=== PATIENT | female | born 1950 | race Caucasian/White ===

== ENCOUNTER 2016-11-14 19:06 | Emergency (ER) | payer OTHER ==
--- NOTE | 2016-11-14 20:19 | ED CLINICAL REPORT ---
Clinical Report - Physicians/Mid Levels Located Within [facility] [address] [place] [address] 11/14/2016 19:07 Patient: YONATAN WRIGHT Time Seen: 19:56. Arrived- By private vehicle. Historian- patient. HISTORY OF PRESENT ILLNESS Chief Complaint: EARACHE. This started several days ago and is still present and now worse. It was gradual in onset and has been constant. Location- left ear. The pain is described as moderate. The patient has had moderate right ear pain. She has had mild left-sided ear drainage. No nasal discharge or congestion, sinus pressure, complaint of foreign body in the ear or ear trauma. No recent barotrauma or tinnitus. REVIEW OF SYSTEMS No chills, fever, sweats, calf pain or chest pain. No cough, difficulty breathing, pedal edema, palpitations or abdominal pain. No constipation, diarrhea, nausea, vomiting or urinary problems. All systems otherwise negative, except as recorded above. PAST HISTORY Problems: Ear Infection. Abscess. Irritable Bowel Syndrome. Gastroenteritis. Headache. Sprain. Aphthous Ulcer. [place] [facility]. UTI - Urinary Tract Infection. Hyperlipidemia. Cancer. Chronic Back Pain. DVT - Deep Venous Thrombosis. Diverticulitis. Dehydration. Diarrhea. Depression. Anxiety Reaction. Hypercholesterolemia. Breast Cancer. Additional Surgeries: Appendectomy. . Hysterectomy. Mastectomy. Oophorectomy. Reconstruction of left breast. Salpingectomy. Medications: Cyclobenzaprine HCl Oral. Amitriptyline HCl Oral 50mg, daily. Simvastatin Oral 80 mg, daily. Venlafaxine HCl ER Oral 150mg, daily. Allergies: Tape adhesive. SOCIAL HISTORY Never smoker. Occasional alcohol use. No drug use. FAMILY HISTORY No significant family medical history. ADDITIONAL NOTES The nursing notes have been reviewed. PHYSICAL EXAM Vital Signs: 11/14/2016 19:38 BP: 128/79. HR: 110. RR: 18. O2 saturation: 96%. Temp: 97.8 F. Have been reviewed. Heart rate: 94 regular per my evaluation. Appearance: Alert. No acute distress. Ear (left): There is erythema of the external canal, swelling of the external canal and erythema of the tympanic membrane. There is material in the external canal (white flocculent material). No fluid behind the tympanic membrane or bulging of the tympanic membrane. Throat: Pharynx normal. Ear (right): Right ear normal. Nose: Nose normal. Neck: Normal inspection. Neck supple. CVS: Normal heart rate and rhythm. Heart sounds normal. Respiratory: No respiratory distress. Breath sounds normal. Abdomen: Soft and nontender. Back: Normal inspection. Skin: Skin warm and dry. Normal skin color. Normal skin turgor. Extremities: Extremities exhibit normal ROM. No calf tenderness. No lower extremity edema. PROGRESS AND PROCEDURES Course of Care: Patient is stable. Patient/family counseled. Old medical records reviewed. Disposition: Discharged. Condition: stable. CLINICAL IMPRESSION Acute left otitis externa. INSTRUCTIONS Do not allow water in ear. Warnings: GENERAL WARNINGS: Return or contact your physician immediately if your condition worsens or changes unexpectedly, if not improving as expected, or if other problems arise. Your Current Medications: CONTINUE TAKING THE FOLLOWING MEDICATIONS: Amitriptyline HCl Oral : 50mg daily. Cyclobenzaprine HCl Oral. Simvastatin Oral : 80 mg daily. Venlafaxine HCl ER Oral : 150mg daily. Prescription Medications: Cortisporin otic suspension: Instill 4 drops into affected ear every 6 hours for 1 week. Dispense ten (10) mL. No refills. Substitution is permissible. Follow-up: Follow up with your doctor in two days if not better. Follow up with an ear, nose and throat physician (an clearing distribution clerk)- as recommended by your primary care physician. Understanding of the discharge instructions verbalized by patient. (Electronically signed by Brice Fong MD 11/16/2016 2:58)
--- NOTE | 2016-11-14 20:19 | ED CLINICAL REPORT ---
Clinical Report - Physicians/Mid Levels [facility] [address] [place] [address] 11/14/2016 19:07 Patient: YONATAN WRIGHT Time Seen: 19:56. Arrived- By private vehicle. Historian- patient. HISTORY OF PRESENT ILLNESS Chief Complaint: EARACHE. This started several days ago and is still present and now worse. It was gradual in onset and has been constant. Location- left ear. The pain is described as moderate. The patient has had moderate right ear pain. She has had mild left-sided ear drainage. No nasal discharge or congestion, sinus pressure, complaint of foreign body in the ear or ear trauma. No recent barotrauma or tinnitus. REVIEW OF SYSTEMS No chills, fever, sweats, calf pain or chest pain. No cough, difficulty breathing, pedal edema, palpitations or abdominal pain. No constipation, diarrhea, nausea, vomiting or urinary problems. All systems otherwise negative, except as recorded above. PAST HISTORY Problems: Ear Infection. Abscess. Irritable Bowel Syndrome. Gastroenteritis. Headache. Sprain. Aphthous Ulcer. [place] [facility]. UTI - Urinary Tract Infection. Hyperlipidemia. Cancer. Chronic Back Pain. DVT - Deep Venous Thrombosis. Diverticulitis. Dehydration. Diarrhea. Depression. Anxiety Reaction. Hypercholesterolemia. Breast Cancer. Additional Surgeries: Appendectomy. . Hysterectomy. Mastectomy. Oophorectomy. Reconstruction of left breast. Salpingectomy. Medications: Cyclobenzaprine HCl Oral. Amitriptyline HCl Oral 50mg, daily. Simvastatin Oral 80 mg, daily. Venlafaxine HCl ER Oral 150mg, daily. Allergies: Tape adhesive. SOCIAL HISTORY Never smoker. Occasional alcohol use. No drug use. FAMILY HISTORY No significant family medical history. ADDITIONAL NOTES The nursing notes have been reviewed. PHYSICAL EXAM Vital Signs: 11/14/2016 19:38 BP: 128/79. HR: 110. RR: 18. O2 saturation: 96%. Temp: 97.8 F. Have been reviewed. Heart rate: 94 regular per my evaluation. Appearance: Alert. No acute distress. Ear (left): There is erythema of the external canal, swelling of the external canal and erythema of the tympanic membrane. There is material in the external canal (white flocculent material). No fluid behind the tympanic membrane or bulging of the tympanic membrane. Throat: Pharynx normal. Ear (right): Right ear normal. Nose: Nose normal. Neck: Normal inspection. Neck supple. CVS: Normal heart rate and rhythm. Heart sounds normal. Respiratory: No respiratory distress. Breath sounds normal. Abdomen: Soft and nontender. Back: Normal inspection. Skin: Skin warm and dry. Normal skin color. Normal skin turgor. Extremities: Extremities exhibit normal ROM. No calf tenderness. No lower extremity edema. PROGRESS AND PROCEDURES Course of Care: Patient is stable. Patient/family counseled. Old medical records reviewed. Disposition: Discharged. Condition: stable. CLINICAL IMPRESSION Acute left otitis externa. INSTRUCTIONS Do not allow water in ear. Warnings: GENERAL WARNINGS: Return or contact your physician immediately if your condition worsens or changes unexpectedly, if not improving as expected, or if other problems arise. Your Current Medications: CONTINUE TAKING THE FOLLOWING MEDICATIONS: Amitriptyline HCl Oral : 50mg daily. Cyclobenzaprine HCl Oral. Simvastatin Oral : 80 mg daily. Venlafaxine HCl ER Oral : 150mg daily. Prescription Medications: Cortisporin otic suspension: Instill 4 drops into affected ear every 6 hours for 1 week. Dispense ten (10) mL. No refills. Substitution is permissible. Follow-up: Follow up with your doctor in two days if not better. Follow up with an ear, nose and throat physician (an research archaeologist)- as recommended by your primary care physician. Understanding of the discharge instructions verbalized by patient. (Electronically signed by Brice Fong MD 11/16/2016 2:58)
--- NOTE | 2016-11-14 20:19 | ED NURSING NOTES ---
Clinical Report - Nurses [facility] [address] [place] [address] 11/14/2016 19:07 [id number] Triage time 19:38 Nov 14 2016. Acuity: LEVEL 4. Chief Complaint: LEFT EAR PAIN. MORENA COMA SCORE: [place] Coma Scale: 15- eyes open spontaneously (4); best verbal response- oriented x 4 (5); best motor response- obeys commands (6). --19:46 Kalpesh Feliciano R.N. 19:38 11/14/16. BP: 128/79. HR: 110. RR: 18. O2 saturation: 96%. Temp: 97.8 F. Pain level now 8/10. --19:46 Kalpesh Feliciano R.N. Weight: 97.5 kg stated. Height/Length: 62 inches Per Patient. BMI: 39.4. --19:41 Kalpesh Feliciano R.N. Medications Amitriptyline HCl Oral 50mg, daily. Simvastatin Oral 80 mg, daily. Venlafaxine HCl ER Oral 150mg, daily. --19:44 Kalpesh Feliciano R.N. Cyclobenzaprine HCl Oral. --19:45 Kalpesh Feliciano R.N. Allergies Tape adhesive. --19:44 Kalpesh Feliciano R.N. History Arrived by private vehicle. Historian: patient. ( Has been dizzy a couple of days and now feels left sided ear pain. Patient states her ear is clogged. Has had some clear liquid coming out of ear.). She has had ear drainage and a headache. No fever, nasal discharge, sore throat or sinus pain. 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 PAST MEDICAL HX: Ear infection. No history of hearing loss or prior nosebleeds. No history of sinus problems. SOCIAL HX: Never smoker. Occasional alcohol use. No drug use. SELF HARM ASSESSMENT: A self harm assessment was performed. The patient answered "no" to the question "Have you recently felt down, depressed, or hopeless?" and "Do you have thoughts of harming or killing yourself?". FALL RISK ASSESSMENT: Fall risk assessment completed. No fall risk identified. NUTRITIONAL RISK ASSESSMENT: The nutritional risk assessment revealed no deficiencies. FUNCTIONAL ASSESSMENT: Functional assessment: no impairments noted. LEARNING NEEDS ASSESSMENT: The learning needs assessment revealed no barriers. ABUSE ASSESSMENT: Abuse assessment: (yes) The patient was asked "Do you feel safe in your home?". SKIN INTEGRITY ASSESSMENT: Skin integrity risk assessment completed. No skin integrity risk identified. --19:46 Kalpesh Feliciano R.N. PROBLEMS: Abscess. Irritable Bowel Syndrome. Gastroenteritis. Headache. Aphthous Ulcer. [place] [facility]. UTI - Urinary Tract Infection. Hyperlipidemia. Cancer. Chronic Back Pain. DVT - Deep Venous Thrombosis. Diverticulitis. Dehydration. Diarrhea. Depression. Anxiety Reaction. Hypercholesterolemia. Breast Cancer. --19:45 Kalpesh Feliciano R.N. ADDITIONAL SURGERIES: Appendectomy. . Hysterectomy. Mastectomy. Oophorectomy. Reconstruction of left breast. Salpingectomy. --19:45 Kalpesh Feliciano R.N. Interventions ID band on patient. --19:46 Kalpesh Feliciano R.N. PHYSICAL ASSESSMENT To room via wheelchair. GENERAL / NEURO / PSYCH: Alert. Appears in no acute distress. HEENT: No facial asymmetry noted. Pupils equal, round and reactive to light. EOM intact. Nares within normal limits. Pharynx within normal limits. RESPIRATORY: Respirations not labored. CVS: Capillary refill less than 2 seconds. SKIN: Skin is warm and dry. --19:47 Kalpesh Feliciano R.N. NURSING PROGRESS NOTES Pulse oximeter and NIBP monitor placed on patient. Head of bed elevated 90 degrees. Reassurance given. Call light placed in reach. Side rails up x 1. Bed placed in lowest position. Brakes of bed on. --19:47 Kalpesh Feliciano R.N. DISPOSITION / DISCHARGE Departure time: 20:26. Condition at departure: improved. No learning barriers present. Discharge instructions provided and reviewed with the patient. Reviewed medication(s) side effects, precautions, dosing and course information. Prescription(s) given to the patient. Follow up contact number with PCP. Patient verbalized understanding. No warning instructions, treatment instructions, referrals given to the patient, diet instructions or activity restrictions. No note given or stop smoking instructions. The patient was discharged by the physician. She was discharged home. She left the Emergency Department ambulatory and via private vehicle. Patient driving. --20:26 Rosina Smith 20:25 11/14/16. BP: 132/72. HR: 72. RR: 17. O2 saturation: 100%. Temp: 98.4 F. Pain level now: 0/10. --20:26 Rosina Smith Locked/Released at 11/14/2016 20:27 by Rosina Smith
--- NOTE | 2016-11-14 20:19 | ED NURSING NOTES ---
Clinical Report - Nurses [facility] [address] [place] [address] 11/14/2016 19:07 [id number] Triage time 19:38 Nov 14 2016. Acuity: LEVEL 4. Chief Complaint: LEFT EAR PAIN. MORENA COMA SCORE: [place] Coma Scale: 15- eyes open spontaneously (4); best verbal response- oriented x 4 (5); best motor response- obeys commands (6). --19:46 Kalpesh Feliciano R.N. 19:38 11/14/16. BP: 128/79. HR: 110. RR: 18. O2 saturation: 96%. Temp: 97.8 F. Pain level now 8/10. --19:46 Kalpesh Feliciano R.N. Weight: 97.5 kg stated. Height/Length: 62 inches Per Patient. BMI: 39.4. --19:41 Kalpesh Feliciano R.N. Medications Amitriptyline HCl Oral 50mg, daily. Simvastatin Oral 80 mg, daily. Venlafaxine HCl ER Oral 150mg, daily. --19:44 Kalpesh Feliciano R.N. Cyclobenzaprine HCl Oral. --19:45 Kalpesh Feliciano R.N. Allergies Tape adhesive. --19:44 Kalpesh Feliciano R.N. History Arrived by private vehicle. Historian: patient. ( Has been dizzy a couple of days and now feels left sided ear pain. Patient states her ear is clogged. Has had some clear liquid coming out of ear.). She has had ear drainage and a headache. No fever, nasal discharge, sore throat or sinus pain. 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 PAST MEDICAL HX: Ear infection. No history of hearing loss or prior nosebleeds. No history of sinus problems. SOCIAL HX: Never smoker. Occasional alcohol use. No drug use. SELF HARM ASSESSMENT: A self harm assessment was performed. The patient answered "no" to the question "Have you recently felt down, depressed, or hopeless?" and "Do you have thoughts of harming or killing yourself?". FALL RISK ASSESSMENT: Fall risk assessment completed. No fall risk identified. NUTRITIONAL RISK ASSESSMENT: The nutritional risk assessment revealed no deficiencies. FUNCTIONAL ASSESSMENT: Functional assessment: no impairments noted. LEARNING NEEDS ASSESSMENT: The learning needs assessment revealed no barriers. ABUSE ASSESSMENT: Abuse assessment: (yes) The patient was asked "Do you feel safe in your home?". SKIN INTEGRITY ASSESSMENT: Skin integrity risk assessment completed. No skin integrity risk identified. --19:46 Kalpesh Feliciano R.N. PROBLEMS: Abscess. Irritable Bowel Syndrome. Gastroenteritis. Headache. Aphthous Ulcer. [place] [facility]. UTI - Urinary Tract Infection. Hyperlipidemia. Cancer. Chronic Back Pain. DVT - Deep Venous Thrombosis. Diverticulitis. Dehydration. Diarrhea. Depression. Anxiety Reaction. Hypercholesterolemia. Breast Cancer. --19:45 Kalpesh Feliciano R.N. ADDITIONAL SURGERIES: Appendectomy. . Hysterectomy. Mastectomy. Oophorectomy. Reconstruction of left breast. Salpingectomy. --19:45 Kalpesh Feliciano R.N. Interventions ID band on patient. --19:46 Kalpesh Feliciano R.N. PHYSICAL ASSESSMENT To room via wheelchair. GENERAL / NEURO / PSYCH: Alert. Appears in no acute distress. HEENT: No facial asymmetry noted. Pupils equal, round and reactive to light. EOM intact. Nares within normal limits. Pharynx within normal limits. RESPIRATORY: Respirations not labored. CVS: Capillary refill less than 2 seconds. SKIN: Skin is warm and dry. --19:47 Kalpesh Feliciano R.N. NURSING PROGRESS NOTES Pulse oximeter and NIBP monitor placed on patient. Head of bed elevated 90 degrees. Reassurance given. Call light placed in reach. Side rails up x 1. Bed placed in lowest position. Brakes of bed on. --19:47 Kalpesh Feliciano R.N. DISPOSITION / DISCHARGE Departure time: 20:26. Condition at departure: improved. No learning barriers present. Discharge instructions provided and reviewed with the patient. Reviewed medication(s) side effects, precautions, dosing and course information. Prescription(s) given to the patient. Follow up contact number with PCP. Patient verbalized understanding. No warning instructions, treatment instructions, referrals given to the patient, diet instructions or activity restrictions. No note given or stop smoking instructions. The patient was discharged by the physician. She was discharged home. She left the Emergency Department ambulatory and via private vehicle. Patient driving. --20:26 Rosina Smith 20:25 11/14/16. BP: 132/72. HR: 72. RR: 17. O2 saturation: 100%. Temp: 98.4 F. Pain level now: 0/10. --20:26 Rosina Smith Locked/Released at 11/14/2016 20:27 by Rosina Smith
--- NOTE | 2016-11-16 02:58 | ED DISCHARGE INSTRUCTIONS ---
Patient: YONATAN WRIGHT General Instructions [facility] VisitID: [id number] [place] [address] 65y, F Registration Date/Time: 11/14/2016 Acute left otitis externa. INSTRUCTIONS Do not allow water in ear. Warnings: GENERAL WARNINGS: Return or contact your physician immediately if your condition worsens or changes unexpectedly, if not improving as expected, or if other problems arise. Your Current Medications: CONTINUE TAKING THE FOLLOWING MEDICATIONS: Amitriptyline HCl Oral : 50mg daily. Cyclobenzaprine HCl Oral. Simvastatin Oral : 80 mg daily. Venlafaxine HCl ER Oral : 150mg daily. Prescription Medications: Cortisporin otic suspension: Instill 4 drops into affected ear every 6 hours for 1 week. Dispense ten (10) mL. No refills. Substitution is permissible. Follow-up: Follow up with your doctor in two days if not better. Follow up with an ear, nose and throat physician (an photo studio assistant)- as recommended by your primary care physician. Understanding of the discharge instructions verbalized by patient. ADDITIONAL INFORMATION External Ear Infection [Adult] This is an infection in the ear canal due to an overgrowth of bacteria or fungus. This often occurs a few days after water gets trapped in the ear canal (swimming or bathing). It may also occur after cleaning too deeply in the ear canal with a cotton swab or other object. Sometimes hair care products get into the ear canal and cause this problem. There may be itching, redness, drainage, or swelling of the ear canal and temporary loss of hearing. Home Care: Do not try to clean the ear canal. That could push pus and bacteria deeper into the canal. Use the drops prescribed to reduce swelling and fight the infection. If an EAR WICK was placed in the ear canal, apply drops right onto the end of the wick. The wick will draw the medicine into the ear canal even if it is swollen closed. Do not allow water to get into your ear when bathing. No swimming during this time. A cotton ball may be loosely placed in the outer ear to absorb any drainage. You may use acetaminophen (Tylenol) or ibuprofen (Motrin, Advil) to control pain, unless another medicine was prescribed. [NOTE: If you have chronic liver or kidney disease or ever had a stomach ulcer or GI bleeding, talk with your doctor before using these medicines.] Preventing Future Infections: You can usually avoid this problem by using an eardrop that removes the water from your ear canal when you feel there is water trapped there. You can get these drops over the counter (Swim Ear, Aqua Ear and other brands). Follow Up with your doctor or this facility in one week or as instructed by our staff. Get Prompt Medical Attention if any of the following occur: Ear pain becomes worse or does not begin to improve after 3 days of treatment Redness or swelling of the outer ear occurs or gets worse Headache, painful or stiff neck, Feeling drowsy or confused Fever of 100.4F (38C) or higher, or as directed by your healthcare provider Seizure You have been given the following additional information: External Ear Infection (Adult) Do not allow water in ear. (Electronically signed by Brice Fong MD 11/16/2016 2:58)
--- NOTE | 2016-11-16 02:58 | ED MED RECONCILIATION SUMMARY ---
Patient: YONATAN WRIGHT Medication Reconciliation Report [facility] VisitID: [id number] [address] [place] [address] 65y, F Registration Date/Time: 11/14/2016 Weight: 97.5 kg Height/Length: 62 in. BMI: 39.4 ALLERGIES: Tape adhesive The patient's Home Medications are listed below: CONTINUE TAKING THE FOLLOWING MEDICATIONS: Amitriptyline HCl Oral 50mg, daily Cyclobenzaprine HCl Oral Simvastatin Oral 80 mg, daily Venlafaxine HCl ER Oral 150mg, daily The source(s) of the original Home Medication information: Not obtained. The following Medications were given to the patient in the Emergency Department: None. The following Medications were prescribed to the patient: Cortisporin otic suspension: Instill 4 drops into affected ear every 6 hours for 1 week. Dispense ten (10) mL. No refills. Substitution is permissible. -- Brice Fong MD
--- NOTE | 2016-11-16 02:58 | ED MED RECONCILIATION SUMMARY ---
Patient: YONATAN WRIGHT Medication Reconciliation Report [facility] VisitID: [id number] [address] [place] [address] 65y, F Registration Date/Time: 11/14/2016 Weight: 97.5 kg Height/Length: 62 in. BMI: 39.4 ALLERGIES: Tape adhesive The patient's Home Medications are listed below: CONTINUE TAKING THE FOLLOWING MEDICATIONS: Amitriptyline HCl Oral 50mg, daily Cyclobenzaprine HCl Oral Simvastatin Oral 80 mg, daily Venlafaxine HCl ER Oral 150mg, daily The source(s) of the original Home Medication information: Not obtained. The following Medications were given to the patient in the Emergency Department: None. The following Medications were prescribed to the patient: Cortisporin otic suspension: Instill 4 drops into affected ear every 6 hours for 1 week. Dispense ten (10) mL. No refills. Substitution is permissible. -- Brice Fong MD
--- NOTE | 2016-11-16 02:58 | ED DISCHARGE INSTRUCTIONS ---
Patient: YONATAN WRIGHT General Instructions [facility] VisitID: [id number] [place] [address] 65y, F Registration Date/Time: 11/14/2016 Acute left otitis externa. INSTRUCTIONS Do not allow water in ear. Warnings: GENERAL WARNINGS: Return or contact your physician immediately if your condition worsens or changes unexpectedly, if not improving as expected, or if other problems arise. Your Current Medications: CONTINUE TAKING THE FOLLOWING MEDICATIONS: Amitriptyline HCl Oral : 50mg daily. Cyclobenzaprine HCl Oral. Simvastatin Oral : 80 mg daily. Venlafaxine HCl ER Oral : 150mg daily. Prescription Medications: Cortisporin otic suspension: Instill 4 drops into affected ear every 6 hours for 1 week. Dispense ten (10) mL. No refills. Substitution is permissible. Follow-up: Follow up with your doctor in two days if not better. Follow up with an ear, nose and throat physician (an billboard mechanic)- as recommended by your primary care physician. Understanding of the discharge instructions verbalized by patient. ADDITIONAL INFORMATION External Ear Infection [Adult] This is an infection in the ear canal due to an overgrowth of bacteria or fungus. This often occurs a few days after water gets trapped in the ear canal (swimming or bathing). It may also occur after cleaning too deeply in the ear canal with a cotton swab or other object. Sometimes hair care products get into the ear canal and cause this problem. There may be itching, redness, drainage, or swelling of the ear canal and temporary loss of hearing. Home Care: Do not try to clean the ear canal. That could push pus and bacteria deeper into the canal. Use the drops prescribed to reduce swelling and fight the infection. If an EAR WICK was placed in the ear canal, apply drops right onto the end of the wick. The wick will draw the medicine into the ear canal even if it is swollen closed. Do not allow water to get into your ear when bathing. No swimming during this time. A cotton ball may be loosely placed in the outer ear to absorb any drainage. You may use acetaminophen (Tylenol) or ibuprofen (Motrin, Advil) to control pain, unless another medicine was prescribed. [NOTE: If you have chronic liver or kidney disease or ever had a stomach ulcer or GI bleeding, talk with your doctor before using these medicines.] Preventing Future Infections: You can usually avoid this problem by using an eardrop that removes the water from your ear canal when you feel there is water trapped there. You can get these drops over the counter (Swim Ear, Aqua Ear and other brands). Follow Up with your doctor or this facility in one week or as instructed by our staff. Get Prompt Medical Attention if any of the following occur: Ear pain becomes worse or does not begin to improve after 3 days of treatment Redness or swelling of the outer ear occurs or gets worse Headache, painful or stiff neck, Feeling drowsy or confused Fever of 100.4F (38C) or higher, or as directed by your healthcare provider Seizure You have been given the following additional information: External Ear Infection (Adult) Do not allow water in ear. (Electronically signed by Brice Fong MD 11/16/2016 2:58)
--- NOTE | 2016-11-16 02:58 | ED MAR SUMMARY ---
..... Medication Administration Record [facility] [address] [place] [place], [place] [id number] Patient: YONATAN WRIGHT Visit ID: [id number] 65y, F Weight: 97.5 kg Height/Length: 62 in BMI: 39.4 ALLERGIES: Tape adhesive
--- NOTE | 2016-11-16 02:58 | ED MAR SUMMARY ---
..... Medication Administration Record [facility] [address] [place], [place] [id number] Patient: YONATAN WRIGHT Visit ID: [id number] 65y, F Weight: 97.5 kg Height/Length: 62 in BMI: 39.4 ALLERGIES: Tape adhesive
== END 2016-11-14 20:25 | disposition home or self-care (01) ==
LOC: ED SRH 19:06
DX: H60.502 Unspecified acute noninfective otitis externa, left ear (principal); E78.00 Pure hypercholesterolemia, unspecified; Z79.899 Other long term (current) drug therapy; Z91.09 Other allergy status, other than to drugs and biological substances